=== PATIENT | male | born 1960 | race Two or more races ===

== ENCOUNTER 2023-11-20 12:46 | Inpatient (IN) | payer MEDICAID, OTHER ==
[~2023-11-20] VITALS: Ht 190.5 cm; Wt 50.7 kg
[2023-11-20 13:54] LABS: Basophils # (auto) 0.2 10 ^3/uL (0-0.2); Basophils % (auto) 1.5 % (0.0-2.0); Eosinophils # (auto) 0.3 10 ^3/uL (0-0.8); Eosinophils % (auto) 3.3 % (0.0-7.0); Hemoglobin 14.2 g/dL (13.5-17.5); Lymphocytes # (auto) 2.5 10 ^3/uL (0.4-5.4); Mean Corpuscular Hemoglobin 28.3 pg (28.0-32.0); Mean Corpuscular Hgb Conc. 33.7 g/dL (32.0-36.0); Mean Corpuscular Volume 84.1 fL (80.0-100.0); Monocytes # (auto) 0.7 10 ^3/uL (0-1.3); Monocytes % (auto) 6.9 % (0.0-12.0); Neutrophils # (auto) 6.8 10 ^3/uL (1.6-8.6); Neutrophils % (auto) 64.3 % (37.0-80.0); Nucleated Red Blood Cells % 0.2 %; Platelet Count (auto) 418 10^3/uL (140-450); Red Cell Distribution Width 14.8 % (11.8-14.3); White Blood Cell 10.5 10^3/uL (4.4-10.8)
[2023-11-20 13:59] LABS: Chloride 106 mmol/L (98-107); Potassium 3.6 mmol/L (3.5-5.1); Sodium 140 mmol/L (136-145)
[2023-11-20 14:00] LABS: Anion Gap 11 (5-15); Calcium 9.4 mg/dL (8.7-10.4); Carbon Dioxide 23 mmol/L (20-30)
[2023-11-20 14:05] LABS: BUN/Creatinine Ratio 16.7 (10.0-20.0); Blood Urea Nitrogen 14 mg/dL (9-23); Glucose 213 mg/dL (74-106)
[2023-11-20] MEDS: FUROSEMIDE 40 MG/4 ML VIAL IV ONE (15:59)
[2023-11-20] MEDS: ONDANSETRON HCL 4 MG/2 ML VIAL IV ONE (15:59)
[2023-11-20] MEDS: MORPHINE SULFATE 4 MG/ML SYR/VIAL IV ONE (16:00)
[2023-11-20 16:06] VITALS: PULSE 97; RESP 20; O2SAT 92
[2023-11-20] MEDS: POTASSIUM EFFERVESENT TAB 25 MEQ PO ONE (17:50)
[2023-11-20] MEDS ORDERED: ONDANSETRON HCL 4 MG/2 ML VIAL IV PRN (18:45)
[2023-11-20] MEDS ORDERED: ACETAMINOPHEN 325 MG TAB PO PRN (18:45)
[2023-11-20 19:40] VITALS: PULSE 116; RESP 17; O2SAT 97
[2023-11-20 19:44] LABS: Lactic Acid w/Reflex 2.8 mmol/L (0.4-2.0)
[2023-11-20] MEDS: HYDROcodone-ACET 5/325MG TAB PO PRN (21:09)
[2023-11-20] MEDS: TEMAZEPAM 15 MG CAP PO PRN (21:09)
[2023-11-20] MEDS: hydrALAZINE HCL 25 MG TAB PO SCH (22:00)
[2023-11-20] MEDS: CLINDAMYCIN 600MG IV 50 ML IV SCH (22:22)
[2023-11-20] MEDS: ATORVASTATIN 20 MG TAB PO SCH (22:23)
[2023-11-20 22:30] VITALS: BP 144/78; PULSE 87; TEMP 98; O2SAT 95
[2023-11-20] MEDS: METOPROLOL TARTRATE 25 MG TAB PO SCH (22:45)
[2023-11-20] MEDS ORDERED: ISO60SRT PO (22:52)
[2023-11-20] MEDS ORDERED: LOSA-535 PO (22:52)
[2023-11-20] MEDS ORDERED: ALLO300T2 PO (22:52)
[2023-11-20] MEDS ORDERED: ONDA-180 PO (22:52)
[2023-11-20] MEDS ORDERED: METO25TA93 PO (22:52)
[2023-11-20] MEDS ORDERED: CYCL-611 PO (22:52)
[2023-11-20] MEDS ORDERED: GLIP-110 PO (22:52)
[2023-11-20] MEDS ORDERED: IBUP-1455 PO (22:52)
[2023-11-20] MEDS ORDERED: SERT25TA28 PO (22:52)
[2023-11-20] MEDS ORDERED: HYDR25TA87 PO (22:52)
[2023-11-20] MEDS ORDERED: GABA-339 PO (22:52)
[2023-11-20] MEDS ORDERED: METF-372 PO (22:52)
[2023-11-20] MEDS ORDERED: TRAZ-227 PO (22:52)
[2023-11-20] MEDS ORDERED: ASPI-543 PO (22:55)
[2023-11-20] MEDS ORDERED: AMLO1TAB22 PO (22:55)
[2023-11-20 22:56] VITALS: PULSE 87; RESP 20; O2SAT 95
[2023-11-20 22:57] VITALS: BP 144/78; PULSE 87; RESP 20; TEMP 98; O2SAT 95
[2023-11-21] VITALS (7 sets, daily range): BP systolic 139–169; BP diastolic 76–99; PULSE 70–90; RESP 17–20; TEMP 97.8–98.2; O2SAT 92–96
[2023-11-21] MEDS: FUROSEMIDE 20 MG/2 ML VIAL IV SCH (05:14)
[2023-11-21 06:06] LABS: Basophils # (auto) 0.1 10 ^3/uL (0-0.2); Basophils % (auto) 1.1 % (0.0-2.0); Eosinophils # (auto) 0.4 10 ^3/uL (0-0.8); Eosinophils % (auto) 4.6 % (0.0-7.0); Hematocrit 38.3 % (41.0-53.0); Lymphocytes # (auto) 1.9 10 ^3/uL (0.4-5.4); Lymphocytes % (auto) 22.8 % (10.0-50.0); Mean Corpuscular Hemoglobin 28.6 pg (28.0-32.0); Mean Corpuscular Volume 84.3 fL (80.0-100.0); Monocytes # (auto) 0.6 10 ^3/uL (0-1.3); Monocytes % (auto) 7.1 % (0.0-12.0); Neutrophils # (auto) 5.5 10 ^3/uL (1.6-8.6); Neutrophils % (auto) 64.4 % (37.0-80.0); Platelet Count (auto) 362 10^3/uL (140-450); Red Blood Cells 4.55 10^6/uL (4.5-5.90); Red Cell Distribution Width 14.9 % (11.8-14.3); White Blood Cell 8.5 10^3/uL (4.4-10.8)
[2023-11-21 06:34] LABS: Alanine Aminotransferase 22 U/L (7-40); Alkaline Phosphatase 106 U/L (46-116); Anion Gap 7 (5-15); Aspartate Aminotransferase 13 U/L (13-40); BUN/Creatinine Ratio 18.2 (10.0-20.0); Blood Urea Nitrogen 16 mg/dL (9-23); Calcium 8.8 mg/dL (8.7-10.4); Carbon Dioxide 29 mmol/L (20-30); Chloride 102 mmol/L (98-107); Glucose 203 mg/dL (74-106); Potassium 3.7 mmol/L (3.5-5.1); Sodium 138 mmol/L (136-145)
[2023-11-21 06:35] LABS: Albumin 3.8 g/dL (3.2-4.8); Bilirubin, Total 0.5 mg/dL (0.2-1.0); Total Protein 6.2 g/dL (5.7-8.2)
[2023-11-21] MEDS: ALLOPURINOL 100 MG TAB PO SCH (10:06)
[2023-11-21] MEDS: SERTRALINE HCL 50 MG TAB PO SCH (10:06)
[2023-11-21] MEDS: ENOXAPARIN SOD 40 MG/0.4 ML SYRINGE SC SCH (10:06)
[2023-11-21] MEDS: ISOSORBIDE MONONITRATE ER 60 MG TAB PO SCH (10:08)
[2023-11-21 11:00] LABS: Urine Bacteria None Seen /hpf (None Seen); Urine WBC None Seen /hpf (0 - 3)
[2023-11-21 11:06] LABS: Urine Blood Negative /uL (Negative); Urine Clarity Clear (Clear); Urine Color Light-Yellow (Yellow); Urine Protein, UAD 1+ (Negative); Urine Specific Gravity 1.013 (1.001-1.035); Urine Urobilinogen Normal (Negative); Urine pH 5.5 (5.0-9.0)
[2023-11-21 11:24] LABS: Amphetamine Screen, Urine Neg (NEGATIVE); Barbiturate Scree,Urine Neg (NEGATIVE); Benzodiazephine Screen, Urine Neg (NEGATIVE); Cannabinoid Screen, Urine Neg (NEGATIVE); Cocaine Screen, Urine Neg (NEGATIVE); Opiate Scree,Urine Neg (NEGATIVE); Phencyclidine Screen, Urine Neg (NEGATIVE)
[2023-11-21] MEDS ORDERED: DEXTROSE (50%) 50ML SYRG IV PRN (11:45)
[2023-11-21 12:05] LABS: Triglycerides 179 mg/dL (< 150)
[2023-11-21 12:06] LABS: LDL Cholesterol 89 mg/dL (< 100)
[2023-11-21 12:07] LABS: Cholesterol 150 mg/dL (< 200); HDL Cholesterol 43 mg/dL (40-59)
[2023-11-21] MEDS: MORPHINE SULFATE INJ 2 MG/ml SYRG IV PRN (13:13)
[2023-11-21] MEDS: InsuLIN REG 1unit/0.01ml Soln (100units/ml) SC SCH (17:13)
[2023-11-21] MEDS: ACCU-CHEK COMFORT CURVE STRIP VI SCH (17:13)
[2023-11-22] VITALS (7 sets, daily range): BP systolic 109–125; BP diastolic 48–87; PULSE 64–88; RESP 17–20; TEMP 97.8–98.7; O2SAT 92–95
[2023-11-22 06:27] LABS: Anion Gap 4 (5-15); Carbon Dioxide 28 mmol/L (20-30); Chloride 102 mmol/L (98-107); Potassium 3.5 mmol/L (3.5-5.1); Sodium 134 mmol/L (136-145)
[2023-11-22 06:33] LABS: Glucose 225 mg/dL (74-106)
[2023-11-22 06:34] LABS: BUN/Creatinine Ratio 16.7 (10.0-20.0); Blood Urea Nitrogen 14 mg/dL (9-23)
[2023-11-22] MEDS ORDERED: FURO1TAB33 PO (12:07)
[2023-11-22] MEDS ORDERED: HYDR-4902 PO (14:39)
== END 2023-11-22 14:40 | disposition home or self-care (01) | DRG 194 ==
LOC: ER 12:46 → OVERFLOW 18:47 → EAST 18:47
PROVIDERS: ADMIT Family Medicine; ATTEND Internal Medicine Geriatric Medicine
DX: I11.0 Hypertensive heart disease with heart failure (principal); L03.115 Cellulitis of right lower limb; I50.31 Acute diastolic (congestive) heart failure; L03.116 Cellulitis of left lower limb; E11.9 Type 2 diabetes mellitus without complications; E78.5 Hyperlipidemia, unspecified; Z96.641 Presence of right artificial hip joint; I16.0 Hypertensive urgency; E88.810 Metabolic syndrome; E66.01 Morbid (severe) obesity due to excess calories; I87.2 Venous insufficiency (chronic) (peripheral); Z82.0 Family history of epilepsy and other diseases of the nervous system; Z80.8 Family history of malignant neoplasm of other organs or systems; Z82.49 Family history of ischemic heart disease and other diseases of the circulatory system; Z79.82 Long term (current) use of aspirin; Z79.899 Other long term (current) drug therapy; Z79.4 Long term (current) use of insulin; Z68.41 Body mass index [BMI] 40.0-44.9, adult
CPT/HCPCS: 36415; 71046; 80048; 80053; 80061; 80307; 81001; 82306; 82607; 82962; 83036; 83605; 83880; 84443; 84484; 84550; 85025; 87040; 93306; 93970; 96374; 96375; G0378; J1815; J2405; J3490